=== PATIENT | male | born 1970 | race Caucasian/White ===

== ENCOUNTER 2017-11-03 15:36 | Emergency (ER) | payer OTHER ==
[2017-11-03 15:47] VITALS: BP 112/76
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
== END 2017-11-03 17:32 | disposition home or self-care (01) ==
PROC: 0HQKXZZ Repair Right Lower Leg Skin, External Approach (ICD-10-PCS; principal; 2017-11-03)
DX: S81.011A Laceration without foreign body, right knee, initial encounter (principal); V19.49XA Pedal cycle driver injured in collision with other motor vehicles in traffic accident, initial encounter; Y99.8 Other external cause status; Y93.89 Activity, other specified